=== PATIENT | male | born 1965 | race Caucasian/White ===

== ENCOUNTER 2016-07-18 10:02 | Emergency (ER) | payer MEDICAID ==
[~2016-07-18] VITALS: Ht 177.8 cm; Wt 83.0 kg
[2016-07-18 10:06] VITALS: Ht 177.8 cm; Wt 83.0 kg
[2016-07-18] MEDS ORDERED: IBUP-1542 PO (10:52)
[2016-07-18] MEDS ORDERED: AZIT250T94 PO (10:52)
[2016-07-18] MEDS ORDERED: D-ME473S18 PO (10:52)
[2016-07-18] MEDS ORDERED: FLUT9.9S NASAL (10:52)
--- NOTE | 2016-07-18 10:53 | ERD ---
ER Documentation Chief Complaint Date/Time DATE: 07/18/16 TIME: 10:52 Chief Complaint FEVER , COUGH , SORE THROAT X 2 DAYS HPI This 51-year-old male presents with fever and cough and sore throat for last 2 days. He does have productive mucus. Denies chest pain, vomiting, abdominal pain, neck stiffness, rashes per ROS All systems reviewed and are negative except as per history of present illness. Medications Home Meds Active Scripts Ibuprofen* (Motrin*) 600 Mg Tab, 600 MG PO Q6, #15 TAB Prov:KYRA STEPHENSON MD 07/18/16 Dextromethorphan Hb-Promethazine Hcl (Promethazine DM Syrup) 473 Ml Syrup, 5 ML PO Q6H Y for COUGH, #4 OZ Prov:KYRA STEPHENSON MD 07/18/16 Azithromycin* (Zithromax*) 250 Mg Tablet, 250 MG PO .ZPACK DIRECTED, #6 TAB TAKE 500 MG (2 TABS) THE FIRST DAY THEN 250 MG (1 TAB) DAYS 2-5 Prov:KYRA STEPHENSON MD 07/18/16 Fluticasone Propionate (Flonase Allergy Relief) 9.9 Ml [place].susp, 1 SPRAY NASAL DAILY, #1 BOTTLE TO EACH NOSTRIL Prov:KYRA STEPHENSON MD 07/18/16 PMhx/Soc Medical and Surgical Hx: pt denies Medical Hx, pt denies Surgical Hx Physical Exam Vitals Vital Signs Date Time Temp Pulse Resp B/P Pulse Ox O2 Delivery O2 Flow Rate FiO2 07/18/16 10:06 99.8 62 18 110/67 98 Physical Exam Const: [] Alert, [id number] per Head: Atraumatic Eyes: Normal Conjunctiva ENT: Normal External Ears, Nose and Mouth. TMs and oropharynx normal. 3+ nasal congestion. Neck: Full range of motion..~ No meningismus. Resp: Clear to auscultation bilaterally. Slight rhonchi without rales or wheezing retractions. Cardio: Regular rate and rhythm, no murmurs Abd: Soft, non tender, non distended. Normal bowel sounds Skin: No petechiae or rashes Back: No midline or flank tenderness Ext: No cyanosis, or edema Neur: Awake and alert Psych: Normal Mood and Affect Procedures/MDM Patient presents with URI symptoms. He may have viral illness or influenza type illness but given the productive cough will be treated with promethazine, ibuprofen and Zithromax and Flonase for nasal congestion by request. There is no evidence of hypoxemia, respiratory distress . The patient was stable with no new complaints during the ER course. Clinically, there is no current evidence to suggest meningitis, sepsis, acute abdomen, pneumonia, acute coronary syndrome, pulmonary embolism, or any other emergent condition appearing to require further evaluation or hospitalization. The patient should certainly return for any new or worsening symptoms per the aftercare instructions. They should otherwise follow-up with her primary care doctor for reevaluation this week. Departure Diagnosis: Primary Impression: Influenza-like symptoms Condition: Stable Patient Instructions: Acute Bronchitis Additional Instructions: Cheque otro vez con dao doctor primario en el proximo rose or regresa para mas o nueva simptomas. KYRA STEPHENSON MD Jul 18, 2016 10:53
[2016-07-18 11:26] VITALS: TEMP 98.6
== END 2016-07-18 11:26 | disposition home or self-care (01) ==
LOC: FTE 10:02
DX: R50.9 Fever, unspecified (principal); R05 Cough; J02.9 Acute pharyngitis, unspecified
CPT/HCPCS: 99284

== ENCOUNTER 2017-05-09 14:08 | Emergency (ER) | payer MEDICAID, OTHER ==
[~2017-05-09] VITALS: Ht 170.2 cm; Wt 76.0 kg
[~2017-05-09 14:08] MED LIST: AZIT250T94 PO; D-ME473S18 PO; FLUT9.9S NASAL; IBUP-1542 PO
[2017-05-09 14:29] VITALS: Ht 170.2 cm; Wt 76.0 kg
--- NOTE | 2017-05-09 17:21 | RADRPT ---
PROCEDURE: Thoracic Spine. CLINICAL INDICATION: Back Pain TECHNIQUE: AP and lateral views of the thoracic spine are available for review COMPARISON: None available FINDINGS: The upper thoracic spine is not well visualized on the lateral view. The normal thoracic kyphosis is present. Alignment is intact and normal. The vertebral body height s are preserved. No fracture or dislocation is seen. There are multilevel mild degenerative changes of thoracic spine with decreased disk spaces and oste ophytosis. No radiopaque foreign body is identified. The paraspinous soft tissues are unremarkable. IMPRESSION: 1. No acute thoracic spine fracture or subluxation. 2. Multilevel mild thoracic discogenic disease. RPTAT: HFN .Susy Cisneros MD, Date Time Electronically viewed and signed by .Susy Cisneros MD, MD on 05/09/2017 17:20 .N/
--- NOTE | 2017-05-09 17:32 | ERD ---
ER Documentation Chief Complaint Chief Complaint LT LOWER BACK PAIN X 6 DAYS , DENIES ANY TRAUMA HPI This is a 52 year old male presenting to ER with mid back pain 5 days. Patient reports pain as dull and burning for the past 2-3 days. No injury or trauma to area. Patient states at times it radiates to mid chest. No shortness of breath or difficulty breathing. No cough or fever. No chest pressure or heart palpitations. No rash. 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 Patient denies any lower back pain. No vomiting. No dysuria or gross hematuria. ROS All systems reviewed and are negative except as per history of present illness. Medications Home Meds Active Scripts Cyclobenzaprine Hcl* (Cyclobenzaprine Hcl*) 10 Mg Tablet, 10 MG PO TID, #15 TAB Prov:ROMAIN RODRIGUEZ NP 05/09/17 Ibuprofen* (Motrin*) 600 Mg Tab, 600 MG PO Q6, #30 TAB Prov:ROMAIN RODRIGUEZ NP 05/09/17 Ibuprofen* (Motrin*) 600 Mg Tab, 600 MG PO Q6, #15 TAB Prov:KYRA STEPHENSON MD 07/18/16 Dextromethorphan Hb-Promethazine Hcl (Promethazine DM Syrup) 473 Ml Syrup, 5 ML PO Q6H Y for COUGH, #4 OZ Prov:KYRA STEPHENSON MD 07/18/16 Azithromycin* (Zithromax*) 250 Mg Tablet, 250 MG PO .ZPACK DIRECTED, #6 TAB TAKE 500 MG (2 TABS) THE FIRST DAY THEN 250 MG (1 TAB) DAYS 2-5 Prov:KYRA STEPHENSON MD 07/18/16 Fluticasone Propionate (Flonase Allergy Relief) 9.9 Ml [place].susp, 1 SPRAY NASAL DAILY, #1 BOTTLE TO EACH NOSTRIL Prov:KYRA STEPHENSON MD 07/18/16 PMhx/Soc Medical and Surgical Hx: pt denies Medical Hx, pt denies Surgical Hx History of Surgery: No Anesthesia Reaction: No Hx Neurological Disorder: No Hx Respiratory Disorders: No Hx Cardiac Disorders: No Hx Psychiatric Problems: No Hx Miscellaneous Medical Probl: No Hx Alcohol Use: No Hx Substance Use: Yes (MJ) Hx Tobacco Use: No Smoking Status: Never smoker Physical Exam Vitals Vital Signs Date Time Temp Pulse Resp B/P Pulse Ox O2 Delivery O2 Flow Rate FiO2 05/09/17 14:29 98.2 67 18 133/84 99 Physical Exam Const: No acute distress, alert Head: Atraumatic Eyes: Normal Conjunctiva ENT: Normal External Ears, Nose and Mouth. Neck: Full range of motion..~ No meningismus. Resp: Clear to auscultation bilaterally. No wheezing, rhonchi or crackles. No stridor or labored breathing. No intercostal retractions. Cardio: Regular rate and rhythm, no murmurs Abd: Soft, non tender, non distended. Normal bowel sounds Skin: No petechiae or rashes Back: No midline or flank tenderness. paraspinal tenderness to thoracic spine. no midline tenderness Ext: No cyanosis, or edema Neur: Awake and alert Psych: Normal Mood and Affect Procedures/MDM Patient: MICHELLE DILL : 1965 Age: 52 Sex: M MR #: [id number] DOS: 05/09/17 1647 Ordering MD: ROMAIN BEEBE NP Location: [facility] Room/Bed: PROCEDURE: Thoracic Spine. CLINICAL INDICATION: Back Pain TECHNIQUE: AP and lateral views of the thoracic spine are available for review COMPARISON: None available FINDINGS: The upper thoracic spine is not well visualized on the lateral view. The normal thoracic kyphosis is present. Alignment is intact and normal. The vertebral body heights are preserved. No fracture or dislocation is seen. There are multilevel mild degenerative changes of thoracic spine with decreased disk spaces and osteophytosis. No radiopaque foreign body is identified. The paraspinous soft tissues are unremarkable. IMPRESSION: 1. No acute thoracic spine fracture or subluxation. 2. Multilevel mild thoracic discogenic disease. EKG: as interpreted by myself and Dr. Brown Rate/Rhythm: Sinus bradycardia with heart rate 59 bpm QRS, ST, T-waves: No changes consistent w/ acute ischemia Impression: No evidence of ischemia or arrhythmia MDM: This is a 52-year-old male presenting to the emergency department with mid back pain 5 days. Patient describes pain as dull and burning for the last 3 days. Patient states at times he has mid chest pain. No chest pain currently. No cough, shortness breath or difficulty breathing. No signs or symptoms of respiratory distress. No midline tenderness. EKG shows sinus bradycardia with heart rate 59 bpm. Thoracic x-ray reviewed by radiologist as no acute thoracic spine fracture or subluxation. Multilevel mild thoracic discogenic disease. Patient remains alert and stable throughout ED visit. Patient is nontoxic and non-hypoxic appearing. Vital signs are stable. Consulted Dr. Brown regarding this patient and we agree that patient is appropriate for outpatient management. Low suspicion for cauda equina syndrome, ACS, acute fracture, acute dislocation , epidural abscess, malignancy and AAA rupture. Differential Diagnosis includes but is not limited to back strain, sciatica, vertebral fracture, herniated disc, spinal stenosis and nephrolithiasis. Patient is appropriate for outpatient management will be given prescription for ibuprofen and Flexeril. Instructed patient to follow-up with primary care provider in the next 2-3 days for reassessment and additional management. Return to ED for any high fever, chest pain, difficulty breathing, shortness breath, wheezing, vomiting, diarrhea, abdominal pain or any new or worsening symptoms. Patient verbalizes understanding. All questions answered at discharge. Disclaimer: Inadvertent spelling and grammatical errors are likely due to EHR/ dictation software use and do not reflect on the overall quality of patient care. Also, please note that the electronic time recorded on this note does not necessarily reflect the actual time of the patient encounter. Departure Diagnosis: Primary Impression: Back pain Back pain location: thoracic back pain Chronicity: acute Back pain laterality: bilateral Qualified Code: M54.6 - Acute bilateral thoracic back pain Condition: Stable ROMAIN RODRIGUEZ NP May 09, 2017 17:32
[2017-05-09] MEDS ORDERED: IBUP-1542 PO (17:44)
[2017-05-09] MEDS ORDERED: CYCL-319 PO (17:44)
== END 2017-05-09 18:04 | disposition home or self-care (01) ==
LOC: FTE 14:08
DX: M54.6 Pain in thoracic spine (principal)
CPT/HCPCS: 72072; 93005; Z7502

== ENCOUNTER 2017-07-24 19:20 | Emergency (ER) | END 2017-07-24 23:09 | disposition home or self-care (01) ==

== ENCOUNTER 2017-09-12 09:22 | Emergency (ER) | END 2017-09-12 10:45 | disposition home or self-care (01) ==

== ENCOUNTER 2018-04-19 10:45 | Emergency (ER) | END 2018-04-19 15:18 | disposition home or self-care (01) ==

== ENCOUNTER 2019-03-02 23:40 | Emergency (ER) | payer SELFPAY ==
[~2019-03-02] VITALS: Ht 170.2 cm; Wt 70.0 kg
[~2019-03-02 23:40] MED LIST changes: +ACET500C5 PO; +AMOX1TAB10 PO; +AZIT250T PO; -AZIT250T94 PO; +BEN25 PO; +CYCL10TA7 PO; +FAMO-96 PO; +HC30CR25 TOP; +KETO5DRO71 OP; +MED4DP PO; +NAPR-985 PO; +PRED20TA PO
[2019-03-02 23:45] VITALS: Ht 170.2 cm; Wt 70.0 kg
[2019-03-03] MEDS ORDERED: CYCLOBENZAPRINE 10 MG TAB PO ONE (03:00)
[2019-03-03] MEDS ORDERED: NAPROXEN 500 MG TAB PO ONE (03:00)
[2019-03-03 03:44] VITALS: BP 130/70; PULSE 70; RESP 16
== END 2019-03-03 03:45 | disposition home or self-care (01) ==
LOC: FTE 23:40
DX: M54.6 Pain in thoracic spine (principal)
CPT/HCPCS: 99283